=== PATIENT | female | born 1930 | race African-American/Black ===

== ENCOUNTER 2017-07-16 18:31 | Inpatient (IN) | payer MEDICARE, OTHER ==
[~2017-07-16] VITALS: Ht 157.5 cm; Wt 70.4 kg
[2017-07-16 20:10] LABS: BASOPHILS % 0.2 % (0.0-2.0); HEMOGLOBIN. 11.5 g/dL (12.0-16.0); LYMPHOCYTES % 21.8 % (20.0-50.0); MEAN CORPUSCULAR HEMOGLOBIN 26.1 pg (28.0-32.0); MEAN PLATELET VOLUME 8.9 fl (7.4-10.4); MONOCYTES % 4.5 % (2.0-8.0); NEUTROPHILS % 72.5 % (40.0-76.0); PLATELET 222 x1000/uL (130-400); RED CELL DISTRIBUTION WIDTH 16.1 % (11.6-14.6)
[2017-07-16 20:18] LABS: CHLORIDE 104 mEq/L (98-107)
[2017-07-16 20:29] LABS: D-DIMER 18.82 mg/L FEU (<0.50); INR 1.1; PARTIAL THROMBOPLASTIN TIME 25.6 sec (23.4-31.0); PROTHROMBIN TIME 11.4 sec (9.4-11.6)
[2017-07-17] VITALS (23 sets, daily range): BP systolic 113–143; BP diastolic 51–93
[2017-07-17] MEDS ORDERED: ENOXAPARIN 80MG/0.8ML SYR SUBCUT NR (00:30)
[2017-07-17] MEDS ORDERED: ONDANSETRON HCL 4MG/2ML INJ IV PRN (02:30)
[2017-07-17] MEDS ORDERED: CLONIDINE 0.1MG TABLET PO PRN (02:30)
[2017-07-17] MEDS ORDERED: GUAIFENESIN 200MG/10ML SUGAR FREE UDC PO PRN (02:30)
[2017-07-17] MEDS ORDERED: DOCUSATE SODIUM 100MG CAPSULE PO PRN (02:30)
[2017-07-17] MEDS ORDERED: IOHEXOL-350 100 ML BOTTLE ONE (03:36)
[2017-07-17 06:26] LABS: CREATINE KINASE 51 IU/L (26-192); CREATINE KINASE MB FRACTION 2.6 ng/mL (0.5-3.6)
[2017-07-17] MEDS ORDERED: DEXTROSE 50% WATER 50ML SYRINGE IV PRN (07:45)
[2017-07-17] MEDS ORDERED: HEPARIN 25,000 UNITS PREMIX 500 ML IV SCH ×3 (07:45→14:00)
[2017-07-17] MEDS: BLOOD SUGAR DIAGNOSTIC STRIP TEST SCH ×4 (07:50→20:48)
[2017-07-17] MEDS ORDERED: HEPARIN 25,000 UNITS PREMIX 500 ML IV PRN (08:45)
[2017-07-17] MEDS ORDERED: HEPARIN 5000 UNITS/ML VIAL IV SCH (08:45)
[2017-07-17] MEDS ORDERED: HEPARIN 5000 UNITS/ML VIAL IV PRN ×2 (08:45)
[2017-07-17] MEDS: ASPIRIN 81MG EC TABLET PO SCH (09:47)
[2017-07-17] MEDS: INSULIN LISPRO 100 UNITS/ML SUBCUT SCH ×2 (09:47→20:50)
[2017-07-17] MEDS: AMLODIPINE 10MG TABLET PO SCH (09:48)
[2017-07-17 10:49] LABS: BASOPHILS % 0.5 % (0.0-2.0); EOSINOPHILS % 0.5 % (0.0-5.0); HEMATOCRIT. 35.6 % (36.0-48.0); HEMOGLOBIN. 11.3 g/dL (12.0-16.0); LYMPHOCYTES % 31.9 % (20.0-50.0); MEAN CORPUSCULAR HEMOGLOBIN 26.3 pg (28.0-32.0); MEAN CORPUSCULAR VOLUME 83.3 fL (81.0-99.0); MEAN PLATELET VOLUME 8.4 fl (7.4-10.4); MONOCYTES % 8.7 % (2.0-8.0); NEUTROPHILS % 58.4 % (40.0-76.0); PLATELET 211 x1000/uL (130-400); RED BLOOD CELL COUNT 4.27 mill/uL (4.2-5.4)
[2017-07-17 11:07] LABS: D-DIMER 11.27 mg/L FEU (<0.50); INR 1.1; PARTIAL THROMBOPLASTIN TIME 29.2 sec (23.4-31.0); PROTHROMBIN TIME 11.5 sec (9.4-11.6)
[2017-07-17 12:35] LABS: CLARITY URINE CLEAR (CLEAR); COLOR URINE YELLOW (YELLOW); KETONES URINE NEGATIVE (NEGATIVE); LEUKOCYTE ESTERASE URINE NEGATIVE (NEGATIVE); NITRITE URINE POSITIVE (NEGATIVE); OCCULT BLOOD URINE 1+ (NEGATIVE); PROTEIN URINE TRACE (NEGATIVE); SPECIFIC GRAVITY URINE 1.076 (1.005-1.030); UROBILINOGEN URINE 0.2 E.U./dL (0.2-1.0)
[2017-07-17] MEDS ORDERED: SODIUM BICARBONATE 4% (2.4MEQ) 5ML VIAL IV ONE (12:56)
[2017-07-17] MEDS ORDERED: HEPARIN 1,000 UNITS PREMIX 1,500 ML IV ONE (13:23)
[2017-07-17 16:45] LABS: HEMOGLOBIN 11.2 g/dL (12.0-16.0); MEAN CORPUSCULAR HEMOGLOBIN 26.6 pg (28.0-32.0); MEAN CORPUSCULAR VOLUME 82.9 fL (81.0-99.0); PLATELET 184 x1000/uL (130-400); RED BLOOD CELL COUNT 4.23 mill/uL (4.2-5.4)
[2017-07-17 17:30] LABS: CREATINE KINASE MB FRACTION 3.5 ng/mL (0.5-3.6)
[2017-07-17] MEDS: WATER INJ SCH ×8 (20:42→22:00)
[2017-07-17] MEDS: ALTEPLASE INJ SCH ×8 (20:42→22:00)
[2017-07-17] MEDS: DEXT 5% INJ SCH ×8 (20:42→22:00)
[2017-07-17] MEDS ORDERED: ENOXAPARIN 40MG/0.4ML SYR SUBCUT SCH (21:00)
[2017-07-17] MEDS ORDERED: ENOXAPARIN 30MG/0.3ML SYR SUBCUT SCH (21:00)
[2017-07-17 21:46] LABS: BASOPHILS % 0.9 % (0.0-2.0); EOSINOPHILS % 1.5 % (0.0-5.0); HEMATOCRIT. 32.9 % (36.0-48.0); HEMOGLOBIN. 10.3 g/dL (12.0-16.0); LYMPHOCYTES % 29.2 % (20.0-50.0); MEAN CORPUSCULAR HEMOGLOBIN 25.7 pg (28.0-32.0); MEAN CORPUSCULAR VOLUME 81.7 fL (81.0-99.0); MEAN PLATELET VOLUME 8.7 fl (7.4-10.4); MONOCYTES % 8.5 % (2.0-8.0); NEUTROPHILS % 59.9 % (40.0-76.0); PLATELET 177 x1000/uL (130-400); RED BLOOD CELL COUNT 4.02 mill/uL (4.2-5.4); RED CELL DISTRIBUTION WIDTH 15.7 % (11.6-14.6)
[2017-07-17 22:08] LABS: PARTIAL THROMBOPLASTIN TIME 34.1 sec (23.4-31.0)
[2017-07-18] VITALS (42 sets, daily range): BP systolic 104–152; BP diastolic 53–84
[2017-07-18 03:25] LABS: BASOPHILS % 0.8 % (0.0-2.0); EOSINOPHILS % 1.9 % (0.0-5.0); HEMATOCRIT. 37.1 % (36.0-48.0); HEMOGLOBIN. 11.9 g/dL (12.0-16.0); LYMPHOCYTES % 24.7 % (20.0-50.0); MEAN CORPUSCULAR HEMOGLOBIN 26.7 pg (28.0-32.0); MEAN CORPUSCULAR VOLUME 83.1 fL (81.0-99.0); MEAN PLATELET VOLUME 8.4 fl (7.4-10.4); MONOCYTES % 9.9 % (2.0-8.0); NEUTROPHILS % 62.7 % (40.0-76.0); PLATELET 165 x1000/uL (130-400); RED BLOOD CELL COUNT 4.47 mill/uL (4.2-5.4); RED CELL DISTRIBUTION WIDTH 15.9 % (11.6-14.6)
[2017-07-18 03:30] LABS: PARTIAL THROMBOPLASTIN TIME 31.4 sec (23.4-31.0)
[2017-07-18 03:44] LABS: CHLORIDE 106 mEq/L (98-107); HDL CHOLESTEROL 51 mg/dL (40-59); LDL CHOLESTEROL 95 mg/dL (5-100); T4 FREE 1.22 ng/dL (0.76-1.46)
[2017-07-18 04:33] LABS: CREATINE KINASE MB FRACTION 2.6 ng/mL (0.5-3.6)
[2017-07-18] MEDS: WATER INJ SCH ×8 (05:36→12:26)
[2017-07-18] MEDS: DEXT 5% INJ SCH ×8 (05:36→12:26)
[2017-07-18] MEDS: ALTEPLASE INJ SCH ×8 (05:36→12:26)
[2017-07-18] MEDS: BLOOD SUGAR DIAGNOSTIC STRIP TEST SCH ×4 (06:53→21:00)
[2017-07-18] MEDS: INSULIN LISPRO 100 UNITS/ML SUBCUT SCH ×5 (06:54→20:41)
[2017-07-18] MEDS ORDERED: LORAZEPAM 2MG/ML CPJ IV SCH (09:30)
[2017-07-18] MEDS ORDERED: LORAZEPAM 2MG/ML CPJ IV PRN (09:30)
[2017-07-18 09:32] LABS: BASOPHILS % 0.5 % (0.0-2.0); EOSINOPHILS % 1.8 % (0.0-5.0); HEMATOCRIT. 34.2 % (36.0-48.0); HEMOGLOBIN. 10.9 g/dL (12.0-16.0); LYMPHOCYTES % 19.8 % (20.0-50.0); MEAN CORPUSCULAR HEMOGLOBIN 26.1 pg (28.0-32.0); MEAN CORPUSCULAR VOLUME 82.1 fL (81.0-99.0); MEAN PLATELET VOLUME 8.7 fl (7.4-10.4); MONOCYTES % 8.6 % (2.0-8.0); NEUTROPHILS % 69.3 % (40.0-76.0); PLATELET 177 x1000/uL (130-400); RED BLOOD CELL COUNT 4.17 mill/uL (4.2-5.4); RED CELL DISTRIBUTION WIDTH 15.8 % (11.6-14.6)
[2017-07-18] MEDS: AMLODIPINE 10MG TABLET PO SCH (09:37)
[2017-07-18] MEDS: ASPIRIN 81MG EC TABLET PO SCH (09:37)
[2017-07-18] MEDS: AZITHROMYCIN 500 MG TABLET PO SCH (09:37)
[2017-07-18] MEDS: SODIUM CHLORIDE 0.9% 1,000 ML IV SCH ×2 (09:40→10:59)
[2017-07-18 09:52] LABS: PARTIAL THROMBOPLASTIN TIME 30.2 sec (23.4-31.0)
[2017-07-18] MEDS ORDERED: CEFTRIAXONE 2 G PREMIX 50 ML IV SCH (10:00)
[2017-07-18] MEDS: CEFTRIAXONE 2 G in DEXTROSE 5% WATER 50 ML IV SCH (12:26)
[2017-07-18] MEDS ORDERED: SODIUM BICARBONATE 4% (2.4MEQ) 5ML VIAL IV ONE (14:24)
[2017-07-18] MEDS ORDERED: DIPHENHYDRAMINE 50MG/ML VIAL ONE (14:27)
[2017-07-18] MEDS ORDERED: DIPHENHYDRAMINE 50MG/ML VIAL IV NR (14:45)
[2017-07-18 17:15] LABS: BASOPHILS % 0.1 % (0.0-2.0); HEMOGLOBIN. 10.8 g/dL (12.0-16.0); LYMPHOCYTES % 11.7 % (20.0-50.0); MEAN CORPUSCULAR VOLUME 82.3 fL (81.0-99.0); MEAN PLATELET VOLUME 8.9 fl (7.4-10.4); MONOCYTES % 8.4 % (2.0-8.0); NEUTROPHILS % 78.8 % (40.0-76.0); PLATELET 157 x1000/uL (130-400); RED BLOOD CELL COUNT 4.01 mill/uL (4.2-5.4); RED CELL DISTRIBUTION WIDTH 15.8 % (11.6-14.6)
[2017-07-18 17:28] LABS: PARTIAL THROMBOPLASTIN TIME 33.4 sec (23.4-31.0)
[2017-07-18] MEDS ORDERED: DEXT 5% IV SCH ×4 (17:45)
[2017-07-18] MEDS ORDERED: WATER IV SCH ×4 (17:45)
[2017-07-18] MEDS ORDERED: ALTEPLASE IV SCH ×4 (17:45)
[2017-07-18] MEDS ORDERED: DEXT 5% INJ SCH ×5 (18:00→19:30)
[2017-07-18] MEDS ORDERED: WATER INJ SCH ×5 (18:00→19:30)
[2017-07-18] MEDS ORDERED: ALTEPLASE INJ SCH ×5 (18:00→19:30)
[2017-07-18] MEDS ORDERED: HEPARIN 25,000 UNITS PREMIX 500 ML IV SCH (19:30)
[2017-07-18 22:28] LABS: BASOPHILS % 0.7 % (0.0-2.0); EOSINOPHILS % 0.5 % (0.0-5.0); HEMATOCRIT. 29.5 % (36.0-48.0); HEMOGLOBIN. 9.6 g/dL (12.0-16.0); LYMPHOCYTES % 17.9 % (20.0-50.0); MEAN CORPUSCULAR HEMOGLOBIN 26.7 pg (28.0-32.0); MEAN CORPUSCULAR VOLUME 82.5 fL (81.0-99.0); MEAN PLATELET VOLUME 8.9 fl (7.4-10.4); MONOCYTES % 6.8 % (2.0-8.0); NEUTROPHILS % 74.1 % (40.0-76.0); PLATELET 134 x1000/uL (130-400); RED BLOOD CELL COUNT 3.58 mill/uL (4.2-5.4); RED CELL DISTRIBUTION WIDTH 15.2 % (11.6-14.6)
[2017-07-18 22:36] LABS: PARTIAL THROMBOPLASTIN TIME 33.7 sec (23.4-31.0)
[2017-07-19] VITALS (35 sets, daily range): BP systolic 93–147; BP diastolic 52–79
[2017-07-19] MEDS: HYDROCODONE/ACETAMINOPHEN 5/325MG TABLET PO PRN ×3 (01:47→13:19)
[2017-07-19] MEDS: SODIUM CHLORIDE 0.9% 1,000 ML IV SCH ×2 (02:45→13:08)
[2017-07-19 05:51] LABS: PARTIAL THROMBOPLASTIN TIME 34.8 sec (23.4-31.0)
[2017-07-19 06:01] LABS: BASOPHILS % 0.3 % (0.0-2.0); EOSINOPHILS % 0.7 % (0.0-5.0); HEMATOCRIT. 27.8 % (36.0-48.0); HEMOGLOBIN. 9.1 g/dL (12.0-16.0); LYMPHOCYTES % 17.6 % (20.0-50.0); MEAN CORPUSCULAR HEMOGLOBIN 27.3 pg (28.0-32.0); MEAN PLATELET VOLUME 9.2 fl (7.4-10.4); MONOCYTES % 8.4 % (2.0-8.0); PLATELET 119 x1000/uL (130-400); RED BLOOD CELL COUNT 3.35 mill/uL (4.2-5.4); RED CELL DISTRIBUTION WIDTH 16.1 % (11.6-14.6)
[2017-07-19 06:19] LABS: CHLORIDE 106 mEq/L (98-107); PHOSPHORUS 2.9 mg/dL (2.5-4.9)
[2017-07-19] MEDS: BLOOD SUGAR DIAGNOSTIC STRIP TEST SCH ×4 (08:03→21:41)
[2017-07-19] MEDS: INSULIN LISPRO 100 UNITS/ML SUBCUT SCH ×4 (08:20→21:40)
[2017-07-19] MEDS: AZITHROMYCIN 500 MG TABLET PO SCH (08:50)
[2017-07-19] MEDS: ASPIRIN 81MG EC TABLET PO SCH (08:51)
[2017-07-19] MEDS: AMLODIPINE 10MG TABLET PO SCH (08:51)
[2017-07-19 09:20] LABS: BASOPHILS % 0.4 % (0.0-2.0); EOSINOPHILS % 1.3 % (0.0-5.0); HEMATOCRIT. 28.7 % (36.0-48.0); HEMOGLOBIN. 9.2 g/dL (12.0-16.0); LYMPHOCYTES % 20.6 % (20.0-50.0); MEAN CORPUSCULAR HEMOGLOBIN 26.5 pg (28.0-32.0); MEAN CORPUSCULAR VOLUME 82.4 fL (81.0-99.0); MEAN PLATELET VOLUME 8.8 fl (7.4-10.4); MONOCYTES % 11.3 % (2.0-8.0); NEUTROPHILS % 66.4 % (40.0-76.0); PLATELET 126 x1000/uL (130-400); RED BLOOD CELL COUNT 3.48 mill/uL (4.2-5.4); RED CELL DISTRIBUTION WIDTH 15.5 % (11.6-14.6)
[2017-07-19 09:37] LABS: PARTIAL THROMBOPLASTIN TIME 30.1 sec (23.4-31.0)
[2017-07-19] MEDS: RIVAROXABAN 15 MG TABLET PO SCH ×2 (10:37→17:18)
[2017-07-19] MEDS: MORPHINE SULFATE 4 MG/ML CPJ (NOT FOR IM USE) IV PRN (10:37)
[2017-07-19] MEDS: CEFTRIAXONE 2 G in DEXTROSE 5% WATER 50 ML IV SCH (12:17)
[2017-07-19 16:48] LABS: BASOPHILS % 0.2 % (0.0-2.0); EOSINOPHILS % 0.9 % (0.0-5.0); HEMATOCRIT. 25.9 % (36.0-48.0); HEMOGLOBIN. 8.5 g/dL (12.0-16.0); LYMPHOCYTES % 12.1 % (20.0-50.0); MEAN CORPUSCULAR HEMOGLOBIN 27.1 pg (28.0-32.0); MEAN CORPUSCULAR VOLUME 82.8 fL (81.0-99.0); MEAN PLATELET VOLUME 9.2 fl (7.4-10.4); MONOCYTES % 10.6 % (2.0-8.0); NEUTROPHILS % 76.2 % (40.0-76.0); PLATELET 121 x1000/uL (130-400); RED BLOOD CELL COUNT 3.13 mill/uL (4.2-5.4); RED CELL DISTRIBUTION WIDTH 15.6 % (11.6-14.6)
[2017-07-19 16:50] LABS: PARTIAL THROMBOPLASTIN TIME 43.2 sec (23.4-31.0)
[2017-07-19 16:59] LABS: CREATINE KINASE 41 IU/L (26-192)
[2017-07-20] VITALS (12 sets, daily range): BP systolic 100–132; BP diastolic 51–73
[2017-07-20] MEDS: SODIUM CHLORIDE 0.9% 1,000 ML IV SCH ×2 (02:05→14:07)
[2017-07-20] MEDS: ACETAMINOPHEN 325MG TABLET PO PRN (02:12)
[2017-07-20] MEDS: INSULIN LISPRO 100 UNITS/ML SUBCUT SCH ×4 (07:20→21:37)
[2017-07-20] MEDS: BLOOD SUGAR DIAGNOSTIC STRIP TEST SCH ×4 (07:43→21:31)
[2017-07-20] MEDS: AMLODIPINE 10MG TABLET PO SCH (08:48)
[2017-07-20] MEDS: RIVAROXABAN 15 MG TABLET PO SCH ×2 (08:49→18:15)
[2017-07-20] MEDS: AZITHROMYCIN 500 MG TABLET PO SCH (08:49)
[2017-07-20] MEDS: ASPIRIN 81MG EC TABLET PO SCH (08:49)
[2017-07-20] MEDS: MORPHINE SULFATE 4 MG/ML CPJ (NOT FOR IM USE) IV PRN (10:33)
[2017-07-20] MEDS: HYDROCODONE/ACETAMINOPHEN 5/325MG TABLET PO PRN (12:31)
[2017-07-20] MEDS ORDERED: BISACODYL 5MG TABLET PO PRN (13:30)
[2017-07-20] MEDS: CEFTRIAXONE 2 G in DEXTROSE 5% WATER 50 ML IV SCH (13:47)
[2017-07-20] MEDS: GABAPENTIN 300MG CAPSULE PO SCH ×2 (14:05→21:37)
[2017-07-20] MEDS: DOCUSATE SODIUM 100MG CAPSULE PO SCH (18:15)
[2017-07-21] VITALS (12 sets, daily range): BP systolic 88–137; BP diastolic 48–69
[2017-07-21] MEDS: SODIUM CHLORIDE 0.9% 1,000 ML IV SCH (05:00)
[2017-07-21] MEDS: BLOOD SUGAR DIAGNOSTIC STRIP TEST SCH ×4 (06:09→21:28)
[2017-07-21] MEDS: GABAPENTIN 300MG CAPSULE PO SCH ×3 (06:12→21:35)
[2017-07-21 06:45] LABS: BASOPHILS % 0.4 % (0.0-2.0); EOSINOPHILS % 3.5 % (0.0-5.0); HEMATOCRIT. 22.1 % (36.0-48.0); HEMOGLOBIN. 7.2 g/dL (12.0-16.0); LYMPHOCYTES % 24.8 % (20.0-50.0); MEAN CORPUSCULAR HEMOGLOBIN 27.2 pg (28.0-32.0); MEAN CORPUSCULAR VOLUME 83.4 fL (81.0-99.0); MEAN PLATELET VOLUME 9.1 fl (7.4-10.4); MONOCYTES % 9.9 % (2.0-8.0); NEUTROPHILS % 61.4 % (40.0-76.0); PLATELET 142 x1000/uL (130-400); RED BLOOD CELL COUNT 2.64 mill/uL (4.2-5.4); RED CELL DISTRIBUTION WIDTH 15.9 % (11.6-14.6)
[2017-07-21] MEDS: INSULIN LISPRO 100 UNITS/ML SUBCUT SCH ×4 (07:20→21:34)
[2017-07-21 07:57] LABS: CHLORIDE 111 mEq/L (98-107)
[2017-07-21] MEDS: ASPIRIN 81MG EC TABLET PO SCH (09:00)
[2017-07-21 09:38] LABS: HEMATOCRIT 25.1 % (36.0-48.0); HEMOGLOBIN 8.1 g/dL (12.0-16.0)
[2017-07-21] MEDS: DOCUSATE SODIUM 100MG CAPSULE PO SCH ×2 (10:23→17:46)
[2017-07-21] MEDS: AMLODIPINE 10MG TABLET PO SCH (10:24)
[2017-07-21] MEDS: AZITHROMYCIN 500 MG TABLET PO SCH (10:25)
[2017-07-21] MEDS: CEFTRIAXONE 2 G in DEXTROSE 5% WATER 50 ML IV SCH (12:10)
[2017-07-21] MEDS ORDERED: SODIUM CHLORIDE 45ML SPRAY NS PRN (13:00)
[2017-07-21] MEDS: LACTULOSE 20G/30ML UDC PO SCH ×2 (13:51→21:34)
[2017-07-21] MEDS: RIVAROXABAN 15 MG TABLET PO SCH (17:38)
[2017-07-22] VITALS (12 sets, daily range): BP systolic 122–143; BP diastolic 63–86
[2017-07-22] MEDS: GABAPENTIN 300MG CAPSULE PO SCH ×3 (05:47→21:45)
[2017-07-22] MEDS: BLOOD SUGAR DIAGNOSTIC STRIP TEST SCH ×4 (06:51→21:39)
[2017-07-22] MEDS: INSULIN LISPRO 100 UNITS/ML SUBCUT SCH ×4 (07:20→21:45)
[2017-07-22] MEDS: AZITHROMYCIN 500 MG TABLET PO SCH (08:43)
[2017-07-22] MEDS: DOCUSATE SODIUM 100MG CAPSULE PO SCH ×2 (08:56→17:21)
[2017-07-22] MEDS: ASPIRIN 81MG EC TABLET PO SCH (08:56)
[2017-07-22] MEDS: AMLODIPINE 10MG TABLET PO SCH (08:56)
[2017-07-22] MEDS: RIVAROXABAN 15 MG TABLET PO SCH ×2 (08:56→17:21)
[2017-07-22] MEDS: ACETAMINOPHEN 325MG TABLET PO PRN (11:33)
[2017-07-22] MEDS: CEFTRIAXONE 2 G in DEXTROSE 5% WATER 50 ML IV SCH (14:25)
[2017-07-23] VITALS (12 sets, daily range): BP systolic 98–127; BP diastolic 55–75
[2017-07-23] MEDS: BLOOD SUGAR DIAGNOSTIC STRIP TEST SCH ×4 (06:26→21:07)
[2017-07-23] MEDS: GABAPENTIN 300MG CAPSULE PO SCH ×3 (06:26→21:12)
[2017-07-23] MEDS: INSULIN LISPRO 100 UNITS/ML SUBCUT SCH ×4 (07:20→21:12)
[2017-07-23] MEDS: RIVAROXABAN 15 MG TABLET PO SCH ×2 (08:10→18:08)
[2017-07-23] MEDS: ASPIRIN 81MG EC TABLET PO SCH (08:10)
[2017-07-23] MEDS: AMLODIPINE 10MG TABLET PO SCH (08:10)
[2017-07-23] MEDS: AZITHROMYCIN 500 MG TABLET PO SCH (08:10)
[2017-07-23] MEDS: DOCUSATE SODIUM 100MG CAPSULE PO SCH ×2 (08:10→18:08)
[2017-07-23] MEDS: ACETAMINOPHEN 325MG TABLET PO PRN ×2 (08:11→21:12)
[2017-07-23 08:14] LABS: HEMOGLOBIN 7.4 g/dL (12.0-16.0); MEAN CORPUSCULAR HEMOGLOBIN 26.7 pg (28.0-32.0); PLATELET 247 x1000/uL (130-400); RED BLOOD CELL COUNT 2.77 mill/uL (4.2-5.4); RED CELL DISTRIBUTION WIDTH 16.3 % (11.6-14.6)
[2017-07-23 08:51] LABS: CHLORIDE 110 mEq/L (98-107)
[2017-07-23] MEDS: CEFTRIAXONE 2 G in DEXTROSE 5% WATER 50 ML IV SCH (12:35)
[2017-07-24] VITALS (18 sets, daily range): BP systolic 112–147; BP diastolic 53–74
[2017-07-24] MEDS: BLOOD SUGAR DIAGNOSTIC STRIP TEST SCH ×4 (06:00→21:43)
[2017-07-24] MEDS: GABAPENTIN 300MG CAPSULE PO SCH ×3 (06:00→21:42)
[2017-07-24] MEDS: AZITHROMYCIN 500 MG TABLET PO SCH (08:26)
[2017-07-24] MEDS: ASPIRIN 81MG EC TABLET PO SCH (08:27)
[2017-07-24] MEDS: AMLODIPINE 10MG TABLET PO SCH (08:27)
[2017-07-24] MEDS: RIVAROXABAN 15 MG TABLET PO SCH ×2 (08:27→16:40)
[2017-07-24] MEDS: DOCUSATE SODIUM 100MG CAPSULE PO SCH ×2 (08:27→16:40)
[2017-07-24] MEDS: CELECOXIB 200MG CAPSULE PO SCH (08:27)
[2017-07-24] MEDS: INSULIN LISPRO 100 UNITS/ML SUBCUT SCH ×4 (08:28→21:00)
[2017-07-24] MEDS: CEFTRIAXONE 2 G in DEXTROSE 5% WATER 50 ML IV SCH (12:45)
[2017-07-25] VITALS (10 sets, daily range): BP systolic 124–140; BP diastolic 56–81
[2017-07-25] MEDS: BLOOD SUGAR DIAGNOSTIC STRIP TEST SCH ×3 (06:16→16:53)
[2017-07-25] MEDS: GABAPENTIN 300MG CAPSULE PO SCH ×2 (06:17→14:50)
[2017-07-25] MEDS: INSULIN LISPRO 100 UNITS/ML SUBCUT SCH ×3 (07:08→17:05)
[2017-07-25] MEDS: RIVAROXABAN 15 MG TABLET PO SCH ×2 (08:11→16:58)
[2017-07-25] MEDS: CELECOXIB 200MG CAPSULE PO SCH (08:11)
[2017-07-25] MEDS: AZITHROMYCIN 500 MG TABLET PO SCH (08:11)
[2017-07-25] MEDS: DOCUSATE SODIUM 100MG CAPSULE PO SCH ×2 (08:11→16:54)
[2017-07-25] MEDS: ASPIRIN 81MG EC TABLET PO SCH (08:11)
[2017-07-25] MEDS: AMLODIPINE 10MG TABLET PO SCH (08:11)
[2017-07-25 08:20] LABS: BASOPHILS % 0.4 % (0.0-2.0); EOSINOPHILS % 6.5 % (0.0-5.0); HEMOGLOBIN. 9.5 g/dL (12.0-16.0); MEAN CORPUSCULAR HEMOGLOBIN 26.7 pg (28.0-32.0); MEAN CORPUSCULAR VOLUME 84.2 fL (81.0-99.0); MEAN PLATELET VOLUME 8.3 fl (7.4-10.4); MONOCYTES % 7.3 % (2.0-8.0); NEUTROPHILS % 62.8 % (40.0-76.0); PLATELET 354 x1000/uL (130-400); RED BLOOD CELL COUNT 3.56 mill/uL (4.2-5.4); RED CELL DISTRIBUTION WIDTH 15.8 % (11.6-14.6)
[2017-07-25 08:21] LABS: CHLORIDE 111 mEq/L (98-107)
[2017-07-25] MEDS: CEFTRIAXONE 2 G in DEXTROSE 5% WATER 50 ML IV SCH (12:30)
[2017-07-25] MEDS ORDERED: GLIM4TAB2 (14:50)
[2017-07-25] MEDS ORDERED: LOVA40TA73 (14:50)
[2017-07-25] MEDS ORDERED: VERA180T8 (14:50)
[2017-07-25] MEDS ORDERED: ALLO100T (14:50)
[2017-07-25] MEDS ORDERED: METF750T2 (14:50)
== END 2017-07-25 17:50 | DRG 871 ==
LOC: ER 18:39 → CVICU 21:37 → SUPCPDRO 07-17 02:18 → EDBEDREQ 07-17 04:50 → EDBEDREQTM 07-17 04:50 → EDBEDREQSVC 07-17 04:50 → ENRESERV 07-17 04:55 → 3WST 07-19 18:23
PROVIDERS: ADMIT Hospitalist; ATTEND Hospitalist
PROC: 02HV33Z Insertion of Infusion Device into Superior Vena Cava, Percutaneous Approach (ICD-10-PCS; 2017-07-17)
PROC: B548ZZA Ultrasonography of Superior Vena Cava, Guidance (ICD-10-PCS; 2017-07-17)
PROC: 3E06317 Introduction of Other Thrombolytic into Central Artery, Percutaneous Approach (ICD-10-PCS; principal; 2017-07-18)
PROC: 4A0 Measurement and Monitoring, Physiological Systems, Measurement (ICD-10-PCS; 2017-07-18)
PROC: 30233N1 Transfusion of Nonautologous Red Blood Cells into Peripheral Vein, Percutaneous Approach (ICD-10-PCS; 2017-07-24)
DX: A41.9 Sepsis, unspecified organism (principal); I26.99 Other pulmonary embolism without acute cor pulmonale; J96.01 Acute respiratory failure with hypoxia; I82.431 Acute embolism and thrombosis of right popliteal vein; G93.40 Encephalopathy, unspecified; D68.59 Other primary thrombophilia; G81.94 Hemiplegia, unspecified affecting left nondominant side; N39.0 Urinary tract infection, site not specified; L03.114 Cellulitis of left upper limb; M48.02 Spinal stenosis, cervical region; B96.20 Unspecified Escherichia coli [E. coli] as the cause of diseases classified elsewhere; I25.10 Atherosclerotic heart disease of native coronary artery without angina pectoris; M65.9 Synovitis and tenosynovitis, unspecified; M06.4 Inflammatory polyarthropathy; D64.9 Anemia, unspecified; E78.5 Hyperlipidemia, unspecified; I10 Essential (primary) hypertension; I27.20 Pulmonary hypertension, unspecified; J44.9 Chronic obstructive pulmonary disease, unspecified; K59.00 Constipation, unspecified; M77.9 Enthesopathy, unspecified; Z96.652 Presence of left artificial knee joint; E11.9 Type 2 diabetes mellitus without complications; Z82.49 Family history of ischemic heart disease and other diseases of the circulatory system; Z88.0 Allergy status to penicillin
CPT/HCPCS: 36415; 36569; 37211; 70551; 71045; 71275; 72141; 73200; 73221; 74176; 76937; 80048; 80061; 81001; 82550; 82553; 82962; 83036; 83605; 83735; 83880; 84100; 84439; 84443; 84484; 85014; 85018; 85027; 85379; 85384; 86850; 86900; 86920; 87186; 92523; 93005; 93306; 93922; 93970; 93971; 96372; 97110; 97116; 97163; 97166; 97530; 97535; 99291; A6261; C1725; C1766; C1769; J0696; J1200; J1644; J1650; J1815; J2060; J2270; J2997; J3490; J7030; J7040; J7050; J7060; P9016; Q9967; A4315

== ENCOUNTER 2017-07-25 19:02 | Inpatient (IN) | payer MEDICARE, OTHER ==
[~2017-07-25] VITALS: Ht 157.5 cm; Wt 70.3 kg
[~2017-07-25 19:02] MED LIST: ALLO100T; GLIM4TAB2; LOVA40TA73; METF750T2; VERA180T8
[2017-07-25] MEDS ORDERED: ONDANSETRON HCL 4MG/2ML VIAL IV PRN (19:15)
[2017-07-25] MEDS ORDERED: CEFTRIAXONE 2 G PREMIX 50 ML IV SCH (19:15)
[2017-07-25] MEDS ORDERED: GUAIFENESIN 200MG/10ML SUGAR FREE UDC PO PRN (19:15)
[2017-07-25] MEDS ORDERED: SODIUM CHLORIDE 45ML SPRAY NS PRN (19:15)
[2017-07-25] MEDS ORDERED: CLONIDINE 0.1MG TABLET PO PRN (19:15)
[2017-07-25] MEDS ORDERED: BISACODYL 5MG TABLET PO PRN (19:15)
[2017-07-25] MEDS ORDERED: ACETAMINOPHEN 325MG TABLET PO PRN (19:15)
[2017-07-25] MEDS ORDERED: DEXTROSE 50% WATER 50ML SYRINGE IV PRN (19:15)
[2017-07-25 20:00] VITALS: BP 147/64
[2017-07-25] MEDS: BLOOD SUGAR DIAGNOSTIC STRIP TEST SCH (21:00)
[2017-07-25] MEDS: INSULIN LISPRO 100 UNITS/ML SUBCUT SCH (22:30)
[2017-07-25] MEDS: GABAPENTIN 300MG CAPSULE PO SCH (22:30)
[2017-07-25 23:19] VITALS: BP 147/64
[2017-07-26] MEDS: GABAPENTIN 300MG CAPSULE PO SCH ×3 (06:13→21:45)
[2017-07-26 06:54] LABS: BASOPHILS % 0.4 % (0.0-2.0); HEMATOCRIT. 26.3 % (36.0-48.0); HEMOGLOBIN. 8.6 g/dL (12.0-16.0); LYMPHOCYTES % 21.1 % (20.0-50.0); MEAN CORPUSCULAR HEMOGLOBIN 27.4 pg (28.0-32.0); MEAN CORPUSCULAR VOLUME 83.4 fL (81.0-99.0); MEAN PLATELET VOLUME 7.8 fl (7.4-10.4); MONOCYTES % 7.4 % (2.0-8.0); NEUTROPHILS % 64.1 % (40.0-76.0); PLATELET 363 x1000/uL (130-400); RED BLOOD CELL COUNT 3.15 mill/uL (4.2-5.4); RED CELL DISTRIBUTION WIDTH 15.7 % (11.6-14.6)
[2017-07-26] MEDS: BLOOD SUGAR DIAGNOSTIC STRIP TEST SCH ×4 (07:08→21:43)
[2017-07-26] MEDS: INSULIN LISPRO 100 UNITS/ML SUBCUT SCH ×4 (07:08→21:48)
[2017-07-26 07:28] LABS: CHLORIDE 112 mEq/L (98-107)
[2017-07-26 07:45] LABS: PREALBUMIN 14.8 mg/dL (20.0-40.0)
[2017-07-26 08:13] VITALS: BP 130/61
[2017-07-26] MEDS: DOCUSATE SODIUM 100MG CAPSULE PO SCH ×2 (09:48→16:39)
[2017-07-26] MEDS: CELECOXIB 200MG CAPSULE PO SCH (09:48)
[2017-07-26] MEDS: AMLODIPINE 10MG TABLET PO SCH (09:49)
[2017-07-26] MEDS: RIVAROXABAN 15 MG TABLET PO SCH ×2 (09:50→16:39)
[2017-07-26] MEDS: ASPIRIN 81MG EC TABLET PO SCH (09:50)
[2017-07-26 18:27] LABS: CLARITY URINE CLEAR (CLEAR); COLOR URINE YELLOW (YELLOW); KETONES URINE NEGATIVE (NEGATIVE); LEUKOCYTE ESTERASE URINE NEGATIVE (NEGATIVE); NITRITE URINE NEGATIVE (NEGATIVE); OCCULT BLOOD URINE NEGATIVE (NEGATIVE); PROTEIN URINE NEGATIVE (NEGATIVE); SPECIFIC GRAVITY URINE 1.008 (1.005-1.030); UROBILINOGEN URINE 0.2 E.U./dL (0.2-1.0)
[2017-07-26 20:00] VITALS: BP 126/59
[2017-07-27] MEDS: BLOOD SUGAR DIAGNOSTIC STRIP TEST SCH ×4 (06:15→21:21)
[2017-07-27] MEDS: INSULIN LISPRO 100 UNITS/ML SUBCUT SCH ×3 (06:15→21:44)
[2017-07-27] MEDS: GABAPENTIN 300MG CAPSULE PO SCH ×3 (06:15→21:22)
[2017-07-27 08:00] VITALS: BP 142/67
[2017-07-27] MEDS: ASPIRIN 81MG EC TABLET PO SCH (08:19)
[2017-07-27] MEDS: CELECOXIB 200MG CAPSULE PO SCH (08:20)
[2017-07-27] MEDS: AMLODIPINE 10MG TABLET PO SCH (08:20)
[2017-07-27] MEDS: RIVAROXABAN 15 MG TABLET PO SCH ×2 (08:20→17:52)
[2017-07-27] MEDS: DOCUSATE SODIUM 100MG CAPSULE PO SCH ×2 (08:21→17:52)
[2017-07-27] MEDS ORDERED: LACTULOSE 20G/30ML UDC PO SCH (09:00)
[2017-07-27 20:00] VITALS: BP 138/59
[2017-07-27] MEDS: POLYETHYLENE GLYCOL 3350 (17GM) 1 DOSE PACK PO SCH (21:00)
[2017-07-28] MEDS: GABAPENTIN 300MG CAPSULE PO SCH ×3 (05:42→21:29)
[2017-07-28] MEDS: INSULIN LISPRO 100 UNITS/ML SUBCUT SCH ×4 (05:42→21:28)
[2017-07-28] MEDS: BLOOD SUGAR DIAGNOSTIC STRIP TEST SCH ×4 (05:42→21:50)
[2017-07-28 07:02] LABS: BASOPHILS % 0.3 % (0.0-2.0); EOSINOPHILS % 5.3 % (0.0-5.0); HEMATOCRIT. 27.9 % (36.0-48.0); HEMOGLOBIN. 9.2 g/dL (12.0-16.0); LYMPHOCYTES % 17.1 % (20.0-50.0); MEAN CORPUSCULAR HEMOGLOBIN 27.7 pg (28.0-32.0); MEAN CORPUSCULAR VOLUME 84.3 fL (81.0-99.0); MEAN PLATELET VOLUME 7.6 fl (7.4-10.4); MONOCYTES % 9.2 % (2.0-8.0); NEUTROPHILS % 68.1 % (40.0-76.0); PLATELET 424 x1000/uL (130-400); RED BLOOD CELL COUNT 3.31 mill/uL (4.2-5.4); RED CELL DISTRIBUTION WIDTH 16.1 % (11.6-14.6)
[2017-07-28 07:35] LABS: CHLORIDE 110 mEq/L (98-107)
[2017-07-28 07:52] LABS: PHOSPHORUS 3.3 mg/dL (2.5-4.9); TOTAL IRON BINDING CAPACITY 259 ug/dL (250-450)
[2017-07-28 08:00] VITALS: BP 133/66
[2017-07-28 08:13] LABS: FOLIC ACID (FOLATE) SERUM 8.2 ng/mL (>5.38)
[2017-07-28] MEDS: ASPIRIN 81MG EC TABLET PO SCH (09:50)
[2017-07-28] MEDS: DOCUSATE SODIUM 100MG CAPSULE PO SCH ×2 (09:50→17:42)
[2017-07-28] MEDS: AMLODIPINE 10MG TABLET PO SCH (09:52)
[2017-07-28] MEDS: RIVAROXABAN 15 MG TABLET PO SCH ×2 (09:52→17:42)
[2017-07-28] MEDS: CYANOCOBALAMIN 1000MCG/ML VIAL IM SCH (14:35)
[2017-07-28 20:00] VITALS: BP 135/71
[2017-07-28] MEDS: POLYETHYLENE GLYCOL 3350 (17GM) 1 DOSE PACK PO SCH (21:00)
[2017-07-28] MEDS ORDERED: IRON SUCROSE COMPLEX 100 MG in SODIUM CHLORIDE 0.9% 100 ML IV SCH ×4 (21:00)
[2017-07-28] MEDS: IRON SUCROSE COMPLEX 100 MG in SODIUM CHLORIDE 0.9% 100 ML IV SCH (21:29)
[2017-07-29] MEDS: GABAPENTIN 300MG CAPSULE PO SCH ×3 (05:57→22:34)
[2017-07-29] MEDS: BLOOD SUGAR DIAGNOSTIC STRIP TEST SCH ×4 (06:30→21:00)
[2017-07-29 08:14] VITALS: BP 118/70
[2017-07-29] MEDS: CYANOCOBALAMIN 1000MCG/ML VIAL IM SCH (08:47)
[2017-07-29] MEDS: DOCUSATE SODIUM 100MG CAPSULE PO SCH ×2 (08:47→17:19)
[2017-07-29] MEDS: INSULIN LISPRO 100 UNITS/ML SUBCUT SCH ×4 (08:48→22:52)
[2017-07-29] MEDS: ASPIRIN 81MG EC TABLET PO SCH (08:48)
[2017-07-29] MEDS: AMLODIPINE 10MG TABLET PO SCH (08:48)
[2017-07-29] MEDS: RIVAROXABAN 15 MG TABLET PO SCH ×2 (08:48→17:19)
[2017-07-29 20:00] VITALS: BP 134/52
[2017-07-29] MEDS: POLYETHYLENE GLYCOL 3350 (17GM) 1 DOSE PACK PO SCH (21:00)
[2017-07-29] MEDS ORDERED: IRON SUCROSE COMPLEX 100 MG/5 ML ML IV ONE (22:32)
[2017-07-29] MEDS: IRON SUCROSE COMPLEX 100 MG in SODIUM CHLORIDE 0.9% 100 ML IV SCH (22:34)
[2017-07-29] MEDS: LIDOCAINE 5% PATCH TOP SCH (22:35)
[2017-07-30] MEDS: GABAPENTIN 300MG CAPSULE PO SCH ×3 (06:06→21:34)
[2017-07-30] MEDS: BLOOD SUGAR DIAGNOSTIC STRIP TEST SCH ×4 (06:11→21:26)
[2017-07-30 08:00] VITALS: BP 150/70
[2017-07-30] MEDS: ASPIRIN 81MG EC TABLET PO SCH (08:29)
[2017-07-30] MEDS: DOCUSATE SODIUM 100MG CAPSULE PO SCH ×2 (08:29→17:01)
[2017-07-30] MEDS: AMLODIPINE 10MG TABLET PO SCH (08:29)
[2017-07-30] MEDS: CYANOCOBALAMIN 1000MCG/ML VIAL IM SCH (08:29)
[2017-07-30] MEDS: RIVAROXABAN 15 MG TABLET PO SCH ×2 (08:29→17:01)
[2017-07-30] MEDS: INSULIN LISPRO 100 UNITS/ML SUBCUT SCH ×4 (08:30→21:37)
[2017-07-30 20:42] VITALS: BP 136/52
[2017-07-30] MEDS: POLYETHYLENE GLYCOL 3350 (17GM) 1 DOSE PACK PO SCH (21:00)
[2017-07-30] MEDS: IRON SUCROSE COMPLEX 100 MG in SODIUM CHLORIDE 0.9% 100 ML IV SCH (21:35)
[2017-07-30] MEDS: LIDOCAINE 5% PATCH TOP SCH (21:35)
[2017-07-31] MEDS: INSULIN LISPRO 100 UNITS/ML SUBCUT SCH ×4 (05:52→21:06)
[2017-07-31] MEDS: BLOOD SUGAR DIAGNOSTIC STRIP TEST SCH ×4 (05:52→20:54)
[2017-07-31] MEDS: GABAPENTIN 300MG CAPSULE PO SCH ×3 (05:52→20:53)
[2017-07-31 07:03] LABS: BASOPHILS % 0.4 % (0.0-2.0); EOSINOPHILS % 6.1 % (0.0-5.0); HEMATOCRIT. 29.5 % (36.0-48.0); HEMOGLOBIN. 9.5 g/dL (12.0-16.0); LYMPHOCYTES % 30.5 % (20.0-50.0); MEAN CORPUSCULAR HEMOGLOBIN 27.6 pg (28.0-32.0); MEAN CORPUSCULAR VOLUME 85.9 fL (81.0-99.0); MEAN PLATELET VOLUME 7.7 fl (7.4-10.4); MONOCYTES % 8.9 % (2.0-8.0); NEUTROPHILS % 54.1 % (40.0-76.0); PLATELET 455 x1000/uL (130-400); RED BLOOD CELL COUNT 3.43 mill/uL (4.2-5.4); RED CELL DISTRIBUTION WIDTH 16.7 % (11.6-14.6)
[2017-07-31 07:25] LABS: CHLORIDE 109 mEq/L (98-107)
[2017-07-31 08:00] VITALS: BP 134/61
[2017-07-31] MEDS: CYANOCOBALAMIN 1000MCG/ML VIAL IM SCH (10:06)
[2017-07-31] MEDS: ASPIRIN 81MG EC TABLET PO SCH (10:07)
[2017-07-31] MEDS: DOCUSATE SODIUM 100MG CAPSULE PO SCH ×2 (10:07→18:15)
[2017-07-31] MEDS: RIVAROXABAN 15 MG TABLET PO SCH ×2 (10:07→18:15)
[2017-07-31] MEDS: AMLODIPINE 10MG TABLET PO SCH (10:07)
[2017-07-31 19:06] LABS: 25-HYDROXY VITAMIN D3 6.7 ng/mL (.)
[2017-07-31 20:00] VITALS: BP 149/68
[2017-07-31] MEDS: LIDOCAINE 5% PATCH TOP SCH (20:54)
[2017-07-31] MEDS: POLYETHYLENE GLYCOL 3350 (17GM) 1 DOSE PACK PO SCH (20:55)
[2017-07-31] MEDS: IRON SUCROSE COMPLEX 100 MG in SODIUM CHLORIDE 0.9% 100 ML IV SCH (21:08)
[2017-08-01] MEDS: BLOOD SUGAR DIAGNOSTIC STRIP TEST SCH ×4 (06:13→21:00)
[2017-08-01] MEDS: GABAPENTIN 300MG CAPSULE PO SCH ×3 (06:13→21:43)
[2017-08-01] MEDS: INSULIN LISPRO 100 UNITS/ML SUBCUT SCH ×4 (06:17→21:59)
[2017-08-01 08:00] VITALS: BP 147/69
[2017-08-01] MEDS: DOCUSATE SODIUM 100MG CAPSULE PO SCH ×2 (09:02→16:32)
[2017-08-01] MEDS: AMLODIPINE 10MG TABLET PO SCH (09:02)
[2017-08-01] MEDS: ASPIRIN 81MG EC TABLET PO SCH (09:02)
[2017-08-01] MEDS: RIVAROXABAN 15 MG TABLET PO SCH ×2 (09:02→16:32)
[2017-08-01 20:00] VITALS: BP 145/69
[2017-08-01] MEDS: IRON SUCROSE COMPLEX 100 MG in SODIUM CHLORIDE 0.9% 100 ML IV SCH (21:43)
[2017-08-01] MEDS: LIDOCAINE 5% PATCH TOP SCH (21:44)
[2017-08-01] MEDS: POLYETHYLENE GLYCOL 3350 (17GM) 1 DOSE PACK PO SCH (21:44)
[2017-08-02] MEDS: INSULIN LISPRO 100 UNITS/ML SUBCUT SCH ×4 (06:30→21:42)
[2017-08-02] MEDS: BLOOD SUGAR DIAGNOSTIC STRIP TEST SCH ×4 (06:30→21:36)
[2017-08-02] MEDS: GABAPENTIN 300MG CAPSULE PO SCH ×3 (06:31→21:36)
[2017-08-02 06:32] LABS: BASOPHILS % 0.8 % (0.0-2.0); EOSINOPHILS % 5.9 % (0.0-5.0); HEMATOCRIT. 28.9 % (36.0-48.0); HEMOGLOBIN. 9.4 g/dL (12.0-16.0); LYMPHOCYTES % 29.1 % (20.0-50.0); MEAN CORPUSCULAR HEMOGLOBIN 27.9 pg (28.0-32.0); MEAN CORPUSCULAR VOLUME 85.1 fL (81.0-99.0); MEAN PLATELET VOLUME 7.7 fl (7.4-10.4); MONOCYTES % 10.4 % (2.0-8.0); NEUTROPHILS % 53.8 % (40.0-76.0); PLATELET 384 x1000/uL (130-400); RED BLOOD CELL COUNT 3.39 mill/uL (4.2-5.4)
[2017-08-02 06:51] LABS: CHLORIDE 111 mEq/L (98-107)
[2017-08-02 08:00] VITALS: BP 142/67
[2017-08-02] MEDS: RIVAROXABAN 15 MG TABLET PO SCH ×2 (09:44→18:22)
[2017-08-02] MEDS: DOCUSATE SODIUM 100MG CAPSULE PO SCH ×2 (09:44→18:22)
[2017-08-02] MEDS: ASPIRIN 81MG EC TABLET PO SCH (09:45)
[2017-08-02] MEDS: AMLODIPINE 10MG TABLET PO SCH (09:45)
[2017-08-02] MEDS: METHYL SALICYLATE/MENTHOL CREAM 85GM TOP SCH ×2 (18:23→23:20)
[2017-08-02 20:00] VITALS: BP 135/60
[2017-08-02] MEDS: POLYETHYLENE GLYCOL 3350 (17GM) 1 DOSE PACK PO SCH (21:00)
[2017-08-02] MEDS: LIDOCAINE 5% PATCH TOP SCH (21:36)
[2017-08-03] MEDS: BLOOD SUGAR DIAGNOSTIC STRIP TEST SCH ×4 (05:58→20:33)
[2017-08-03] MEDS: GABAPENTIN 300MG CAPSULE PO SCH ×3 (05:58→21:05)
[2017-08-03] MEDS: METHYL SALICYLATE/MENTHOL CREAM 85GM TOP SCH ×4 (05:58→23:59)
[2017-08-03] MEDS: INSULIN LISPRO 100 UNITS/ML SUBCUT SCH ×4 (05:59→20:33)
[2017-08-03 08:00] VITALS: BP 145/60
[2017-08-03] MEDS: RIVAROXABAN 15 MG TABLET PO SCH ×2 (08:17→17:45)
[2017-08-03] MEDS: DOCUSATE SODIUM 100MG CAPSULE PO SCH ×2 (08:17→17:45)
[2017-08-03] MEDS: ASPIRIN 81MG EC TABLET PO SCH (08:17)
[2017-08-03] MEDS: AMLODIPINE 10MG TABLET PO SCH (08:18)
[2017-08-03 20:00] VITALS: BP 147/62
[2017-08-03] MEDS: POLYETHYLENE GLYCOL 3350 (17GM) 1 DOSE PACK PO SCH (20:32)
[2017-08-03] MEDS: LIDOCAINE 5% PATCH TOP SCH (20:34)
[2017-08-04] MEDS: GABAPENTIN 300MG CAPSULE PO SCH ×3 (05:33→21:31)
[2017-08-04] MEDS: METHYL SALICYLATE/MENTHOL CREAM 85GM TOP SCH ×4 (05:33→23:15)
[2017-08-04] MEDS: BLOOD SUGAR DIAGNOSTIC STRIP TEST SCH ×4 (05:33→21:31)
[2017-08-04] MEDS: INSULIN LISPRO 100 UNITS/ML SUBCUT SCH ×4 (05:34→21:33)
[2017-08-04 08:00] VITALS: BP 155/56
[2017-08-04] MEDS: RIVAROXABAN 15 MG TABLET PO SCH ×2 (08:35→16:18)
[2017-08-04] MEDS: AMLODIPINE 10MG TABLET PO SCH (08:35)
[2017-08-04] MEDS: DOCUSATE SODIUM 100MG CAPSULE PO SCH ×2 (08:35→16:18)
[2017-08-04] MEDS: ASPIRIN 81MG EC TABLET PO SCH (08:35)
[2017-08-04 20:00] VITALS: BP 138/64
[2017-08-04] MEDS: POLYETHYLENE GLYCOL 3350 (17GM) 1 DOSE PACK PO SCH (21:00)
[2017-08-04] MEDS: LIDOCAINE 5% PATCH TOP SCH (21:31)
[2017-08-05] MEDS: BLOOD SUGAR DIAGNOSTIC STRIP TEST SCH ×2 (05:43→11:15)
[2017-08-05] MEDS: INSULIN LISPRO 100 UNITS/ML SUBCUT SCH ×2 (05:43→13:44)
[2017-08-05] MEDS: METHYL SALICYLATE/MENTHOL CREAM 85GM TOP SCH ×2 (05:43→12:08)
[2017-08-05] MEDS: GABAPENTIN 300MG CAPSULE PO SCH ×2 (05:43→13:44)
[2017-08-05 08:05] VITALS: BP 139/67
[2017-08-05] MEDS: RIVAROXABAN 15 MG TABLET PO SCH (08:27)
[2017-08-05] MEDS: ASPIRIN 81MG EC TABLET PO SCH (08:27)
[2017-08-05] MEDS: DOCUSATE SODIUM 100MG CAPSULE PO SCH (08:27)
[2017-08-05] MEDS: AMLODIPINE 10MG TABLET PO SCH (08:28)
[2017-08-05] MEDS ORDERED: SODIUM CHLORIDE 45ML SPRAY NS PRN (13:15)
[2017-08-05 13:53] VITALS: BP 139/67
[2017-08-10] MEDS ORDERED: RIVAROXABAN 20 MG TABLET PO SCH (17:00)
== END 2017-08-05 14:40 | disposition home health service (06) | DRG 551 ==
PROVIDERS: ADMIT Physical Medicine & Rehabilitation Spinal Cord Injury Medicine; ATTEND Hospitalist
DX: M48.02 Spinal stenosis, cervical region (principal); I26.99 Other pulmonary embolism without acute cor pulmonale; A41.51 Sepsis due to Escherichia coli [E. coli]; E46 Unspecified protein-calorie malnutrition; J96.90 Respiratory failure, unspecified, unspecified whether with hypoxia or hypercapnia; E44.1 Mild protein-calorie malnutrition; D68.59 Other primary thrombophilia; G93.40 Encephalopathy, unspecified; D68.69 Other thrombophilia; L03.114 Cellulitis of left upper limb; N39.0 Urinary tract infection, site not specified; I82.432 Acute embolism and thrombosis of left popliteal vein; I27.20 Pulmonary hypertension, unspecified; J44.9 Chronic obstructive pulmonary disease, unspecified; E78.5 Hyperlipidemia, unspecified; E11.9 Type 2 diabetes mellitus without complications; M19.90 Unspecified osteoarthritis, unspecified site; M10.9 Gout, unspecified; I25.10 Atherosclerotic heart disease of native coronary artery without angina pectoris; I10 Essential (primary) hypertension; F41.9 Anxiety disorder, unspecified; D64.9 Anemia, unspecified; Z96.652 Presence of left artificial knee joint; R26.9 Unspecified abnormalities of gait and mobility; Z68.28 Body mass index [BMI] 28.0-28.9, adult; E61.1 Iron deficiency; E55.9 Vitamin D deficiency, unspecified; R53.81 Other malaise; M79.609 Pain in unspecified limb; M77.9 Enthesopathy, unspecified; Z79.01 Long term (current) use of anticoagulants; Z86.711 Personal history of pulmonary embolism; Z88.0 Allergy status to penicillin; Z80.9 Family history of malignant neoplasm, unspecified; Z82.49 Family history of ischemic heart disease and other diseases of the circulatory system
CPT/HCPCS: 36415; 80048; 80053; 81003; 82270; 82306; 82607; 82728; 82746; 82962; 83540; 83550; 83735; 84100; 84134; 84443; 84630; 85025; 87086; 92523; 93970; 97110; 97112; 97116; 97163; 97167; 97530; 97535; G0515; J1815; J3420; J7040; J7050

== ENCOUNTER 2020-04-19 06:47 | Emergency (ER) | payer MEDICARE ==
[~2020-04-19] VITALS: Ht 152.4 cm; Wt 68.2 kg
[~2020-04-19 06:47] MED LIST changes: -ALLO100T; +ALLO100T PO; -GLIM4TAB2; +IRBE1TAB31 MT; +LOVA20TA2 MT; -LOVA40TA73; +METF-415 MT; -METF750T2; +RIVA20TA PO; +VERA180C3 MT; -VERA180T8
[2020-04-19] MEDS ORDERED: CEFTRIAXONE 1 G PREMIX 50 ML IV ONE (08:00)
[2020-04-19 09:03] LABS: BASOPHILS % 0.2 % (0.0-2.0); EOSINOPHILS % 0.5 % (0.0-5.0); HEMATOCRIT. 32.9 % (36.0-48.0); LYMPHOCYTES % 12.9 % (20.0-50.0); MEAN CORPUSCULAR HEMOGLOBIN 28.7 pg (28.0-32.0); MEAN CORPUSCULAR VOLUME 85.8 fL (81.0-99.0); MEAN PLATELET VOLUME 7.9 fl (7.4-10.4); MONOCYTES % 6.1 % (2.0-8.0); NEUTROPHILS % 80.3 % (40.0-76.0); PLATELET 286 x1000/uL (130-400); RED BLOOD CELL COUNT 3.84 mill/uL (4.2-5.4); RED CELL DISTRIBUTION WIDTH 19.9 % (11.6-14.6)
[2020-04-19 09:11] LABS: INR 1.5; PROTHROMBIN TIME 15.1 sec (9.6-11.0)
[2020-04-19 09:15] LABS: CHLORIDE 99 mEq/L (98-107)
[2020-04-19] MEDS ORDERED: SODIUM CHLORIDE 0.9% 1,000 ML IV SCH (11:45)
[2020-04-19] MEDS ORDERED: AZITHROMYCIN 500 MG in DEXT 5% WATER 250 ML IV SCH (11:45)
[2020-04-19 14:20] VITALS: BP 113/69
== END 2020-04-19 14:51 | disposition short-term general hospital (02) ==
LOC: ER 06:58 → CANBEDREQ 14:47 → ER 14:51
DX: R09.02 Hypoxemia (principal); R50.9 Fever, unspecified; J18.9 Pneumonia, unspecified organism; I10 Essential (primary) hypertension; Z87.440 Personal history of urinary (tract) infections; Z79.899 Other long term (current) drug therapy; Z88.0 Allergy status to penicillin
CPT/HCPCS: 36415; 71045; 80053; 83605; 83880; 84145; 84484; 85025; 85610; 87040; 87635; 93005; 96361; 96365; 96367; 99285; C9803; J0456; J0696; J7060